=== PATIENT | female | born 1975 | race Caucasian/White ===

== ENCOUNTER 2016-07-12 21:21 | Emergency (ER) | payer MEDICARE, MEDICAID ==
[2016-07-12 21:25] VITALS: BP 123/75
--- NOTE | 2016-07-12 21:31 | EDM.PDOC ---
ED HPI Trauma - General Chief Complaint: Lower Extremity Injury/Pain Stated Complaint: foot pain Time Seen by Provider: 07/12/16 21:24 Source: Reports: Patient History Limitations: Reports: No limitations - History of Present Illness INITIAL COMMENTS - FREE TEXT/NARRATIVE: This patient is a 40 year old that presents to the ER for a NONEMERGENCY. Patient reports having bilateral foot pain and burning. Patient reports this has been on going for a long time (2 years), without change. She saw PCP Tuesday and was prescribed Lyrica. Patient reports the pain has continued after taking this medication and patient in ER tonight "for answers." She reports she has seen several other doctors and foot doctor, but tonight "I want this doctor to find out whats wrong with my feet." Patient denies injury, ramsey, dizziness, n, v, d, f. Bilateral feet no redness, swelling, heat, drainage, wounds, evidence of gout. Pulses +2, cap refill <2 sec, sensory/motor function intact. Neurovascular intact. She has appointment with vascular doctor on July 27. Patient reports the doctor told her she had PVD. Occurred When: other (Over 2 years) Method of Injury: unknown Severity: mild Pain/Injury Location: Reports: lower extremity, right, lower extremity, left. Denies: head, face, mouth, neck, chest, abdomen, pelvis, back, upper extremity, right Consciousness: Reports: no loss of consciousness Associated Symptoms: Reports: no other symptoms. Denies: abdominal pain, chest pain, confusion, dizziness, headache, lightheadedness, muscle spasms, nausea/ vomiting, neck pain, ringing in ears, seizures, shortness of breath, slurred speech, trouble walking, vision changes Allergies/ADRs: Allergies ceftibuten [From Cedax] Allergy (Verified 07/12/16 21:27) Cannot Remember meloxicam [From Mobic] Allergy (Verified 07/12/16 21:27) Cannot Remember Home Medications: Ambulatory Orders Mometasone Furoate [Nasonex [place]] 2 spray INH BEDTIME 07/12/16 [Confirmed 07/12] Omeprazole 20 mg PO BID 07/12/16 [Confirmed 07/12/16] Polyethylene Glycol [Polyox [id number]] 1 packet PO DAILY PRN 07/12/16 [Confirmed 07/12/16] Pregabalin [Lyrica] 50 mg PO BID 07/12/16 [Confirmed 07/12/16] Review of Systems - Review of Systems Review Of Systems: See Below Constitutional: Reports: no symptoms Eyes: Reports: no symptoms Ears: Reports: no symptoms Nose: Reports: no symptoms Mouth/Throat: Reports: no symptoms Respiratory: Reports: No Symptoms Cardiovascular: Reports: no symptoms GI/Abdominal: Reports: No symptoms Genitourinary: Reports: no symptoms Musculoskeletal: Reports: foot pain (bilateral) Skin: Reports: no symptoms Neurological: Reports: No Symptoms Psychiatric: Reports: no symptoms Trauma Exam - Physical Exam Exam: See Below Exam Limited By: No limitations General Appearance: Reports: alert, WD/WN, no apparent distress Head: Reports: atraumatic, normocephalic Eyes: bilateral eye: normal inspection, PERRL Ears: Reports: normal external exam, normal canal, hearing grossly normal, normal TMs Nose: Reports: normal inspection, normal mucousa, no blood Throat/Mouth: Reports: Normal inspection, Normal lips, Normal teeth, Normal gums , Normal oropharynx, Normal voice, No airway compromise Neck: Reports: non-tender, full range of motion, normal alignment, normal inspection Respiratory Exam: Reports: no respiratory distress, lungs clear, normal breath sounds, no accessory muscle use Cardiovascular: Reports: normal peripheral pulses, regular rate, rhythm, no edema, no gallop, no JVD, no murmur, no rub Extremities: Reports: no evidence of injury, normal range of motion, non-tender , no pedal edema, other (ambulatory without difficulty.). Denies: pedal edema, tenderness, unable to bear weight Neurologic: Reports: no motor/sensory deficits, alert, normal mood/affect, oriented x 3 Skin: Reports: Normal color, Warm/dry. Denies: Cyanosis - Nikolai Coma Score Best Eye Response (Neal): (4) open spontaneously Best Verbal Response (Neal): (5) oriented Best Motor Response (Neal): (6) obeys commands Course - Vital Signs Last Recorded V/S: Last Vital Signs Temp 98.1 F 07/12/16 21:21 Pulse 81 07/12/16 21:21 Resp 16 07/12/16 21:21 BP 123/75 07/12/16 21:21 Pulse Ox 98 07/12/16 21:21 - Re-Assessments/Exams Free Text/Narrative Re-Assessment/Exam: 07/12/16 21:37 I educated the patient that she needs to followup with her PCP or correspondence specialist. The emergency department is not the place to find answers to chronic pain complaints that are unchanged. She understands this now after educating. Departure - Departure Time of Disposition: 21:39 Disposition: Home, Self-Care 01 Condition: good Clinical Impression: Bilateral foot pain Instructions: Peripheral Vascular Disease Forms: ED Department Discharge Additional Instructions: Followup with your primary care provider Return to the ER for worsening of condition or any emergent concerns Indomethacin 50mg 1 pill three times a day as needed for pain #30 no refill - Assessment/Plan Plan: PLEASE USE RN NOTE FOR PFSH.
== END 2016-07-12 21:56 | disposition home or self-care (01) ==
LOC: CC.ED 21:21
DX: M79.672 Pain in left foot (principal); M79.671 Pain in right foot; Z88.8 Allergy status to other drugs, medicaments and biological substances
CPT/HCPCS: 99282

== ENCOUNTER 2021-08-23 14:26 | Emergency (ER) | payer MEDICARE, MEDICAID ==
[2021-08-23] MEDS ORDERED: Sodium Chloride 0.9% 10 ML Syringe FLUSH PRN (14:39)
[2021-08-23] MEDS: Sodium Chloride 0.9% 1,000 ML IV ONE (15:34)
[2021-08-23 16:04] LABS: AMPHETAMINES,URINE NEGATIVE (NEGATIVE); BARBITURATES,URINE NEGATIVE (NEGATIVE); BENZODIAZEPINE,URINE NEGATIVE (NEGATIVE); MDMA (ECSTASY), URINE NEGATIVE (NEGATIVE); METHADONE,URINE NEGATIVE (NEGATIVE); METHAMPHETAMINES,URINE NEGATIVE (NEGATIVE); OPIATES,URINE NEGATIVE (NEGATIVE); OXYCODONE,URINE NEGATIVE (NEGATIVE); PHENCYCLIDINE,URINE NEGATIVE (NEGATIVE); TCA,URINE POSITIVE (NEGATIVE)
[2021-08-23 16:13] LABS: CHLORIDE,CL 104 mEq/L (98-106); SODIUM,NA 140 mEq/L (136-145)
[2021-08-23 16:25] LABS: CORONAVIRUS COVID-19 NAA NEGATIVE (NEGATIVE)
[2021-08-23 18:05] VITALS: BP 95/61; PULSE 57
[2021-08-23] MEDS: Doxycycline 100 MG Tab PO ONE (19:23)
== END 2021-08-23 19:40 | disposition home or self-care (01) ==
LOC: CC.ED 14:26
DX: L70.9 Acne, unspecified (principal); R60.9 Edema, unspecified; F17.210 Nicotine dependence, cigarettes, uncomplicated; Z90.49 Acquired absence of other specified parts of digestive tract; Z79.899 Other long term (current) drug therapy; Z88.1 Allergy status to other antibiotic agents; Z88.6 Allergy status to analgesic agent; Z20.822 Contact with and (suspected) exposure to COVID-19
CPT/HCPCS: 0240U; 36415; 70450; 70487; 71046; 80053; 80305-QW; 81003; 83605; 84703; 85025; 86140; 99284; 99284-25; A9270-GY; J7030

== ENCOUNTER 2024-07-06 11:21 | Day surgery (SDC) | payer MEDICARE, MEDICAID ==
[~2024-07-06 11:21] MED LIST: Lactated Ringers 1,000 ML IV SCH
[2024-07-06] MEDS ORDERED: Flumazenil 0.1 MG/ML 10 ML MDV ONE (12:10)
[2024-07-06] MEDS ORDERED: Midazolam 1 MG/ML 2 ML SDV ONE (12:10)
[2024-07-06] MEDS ORDERED: Lidocaine 2% 20 ML MDV ONE (12:10)
[2024-07-06] MEDS ORDERED: Ketamine 200 MG/20 ML MDV ONE (12:10)
[2024-07-06] MEDS ORDERED: Propofol 200 MG/20 ML SDV ONE (12:10)
[2024-07-06] MEDS ORDERED: fentaNYL 50 MCG/ML SDV ONE (12:10)
[2024-07-06 14:12] VITALS: BP 109/65; PULSE 57
== END 2024-07-06 13:40 | disposition home or self-care (01) ==
LOC: CC.SDS 11:21
PROVIDERS: ATTEND Family Medicine
DX: K21.00 Gastro-esophageal reflux disease with esophagitis, without bleeding (principal); K29.70 Gastritis, unspecified, without bleeding; F32.A Depression, unspecified; F41.9 Anxiety disorder, unspecified; E78.5 Hyperlipidemia, unspecified; Z79.899 Other long term (current) drug therapy
CPT/HCPCS: 00813; 87081; 88305; J2003; J2250; J2704; J3010; J3490

== ENCOUNTER 2024-10-15 16:50 | Emergency (ER) | payer MEDICAID, MEDICARE ==
[2024-10-15] MEDS ORDERED: Ondansetron 4 MG/2 ML SDV IVPUSH PRN (17:10)
[2024-10-15] MEDS: fentaNYL 50 MCG/ML SDV IVPUSH ONE (17:10)
[2024-10-15] MEDS: Midazolam 1 MG/ML 2 ML SDV IVPUSH ONE (17:10)
[2024-10-15] MEDS ORDERED: VANCOmycin 1.5 GM/300 ML 1.5 GM in Premix Bag 1 BAG IV ONE (17:30)
[2024-10-15 17:49] VITALS: BP 103/61; PULSE 84
[2024-10-15] MEDS: Take Home: Acetaminophen/HYDROcodone 325-5 MG, 2 Tab Pack PO ONE (18:05)
[2024-10-15] MEDS: VANCOmycin 1.25 GM/250 ML 1.25 GM in Premix Bag 1 BAG IV ONE (18:20)
[2024-10-15] MEDS: VANCOmycin 1.5 GM/300 ML 1.5 GM in Premix Bag 1 BAG IV ONE (18:39)
== END 2024-10-15 20:10 | disposition home or self-care (01) ==
LOC: CC.ED 16:50
DX: L02.212 Cutaneous abscess of back [any part, except buttock and flank] (principal); Z88.1 Allergy status to other antibiotic agents; Z88.8 Allergy status to other drugs, medicaments and biological substances; Z79.899 Other long term (current) drug therapy; Z90.49 Acquired absence of other specified parts of digestive tract
CPT/HCPCS: 10060; 87070; 87077; 87186; 96365; 96366; 96375; 99152; 99283; 99283-25; A9270-GY; J2250; J3010; J3375; J7030